=== PATIENT | female | born 1950 | race Caucasian/White ===

== ENCOUNTER 2017-05-21 15:42 | Outpatient (CLI) | payer MEDICARE, OTHER ==
--- NOTE | 2017-05-22 09:29 | XRAY Report ---
TWO VIEW CHEST: 05/21/2017 CLINICAL INDICATION: Cough. FINDINGS: Frontal and lateral views of the chest demonstrate a normal cardiac silhouette. The lungs are clear. No effusion or pneumothorax is present. IMPRESSION: NORMAL CHEST. TD: 05/22/2017 09:28
== END 2017-05-21 15:43 | disposition home or self-care (01) ==
LOC: DI 15:42
PROVIDERS: ATTEND Internal Medicine
DX: R05 Cough (principal)
CPT/HCPCS: 71046

== ENCOUNTER 2017-12-31 15:14 | Outpatient (CLI) | payer MEDICARE, OTHER ==
--- NOTE | 2017-12-31 16:03 | XRAY Report ---
Reason: L ELBOW PAIN Procedure Date: 12/31/2017 Accession Number: [id number] / [id number] Procedure: XR - Elbow 3 View LT CPT Code: FULL RESULT: EXAM: LEFT ELBOW RADIOGRAPHY EXAM DATE: 12/31/2017 03:46 PM. CLINICAL HISTORY: Left elbow pain. COMPARISON: None. TECHNIQUE: 3 views. FINDINGS: Bones: Normal. No fractures or bone lesions. Joints: Normal. No effusion. No subluxation. Soft Tissues: Normal. No soft tissue swelling. IMPRESSION: Normal elbow radiography. RADIA
== END 2017-12-31 15:15 | disposition home or self-care (01) ==
LOC: DI 15:14
PROVIDERS: ATTEND Internal Medicine
DX: M25.522 Pain in left elbow (principal)

== ENCOUNTER 2018-03-12 08:05 | Outpatient (CLI) | payer MEDICARE, OTHER ==
[2018-03-12] MEDS ORDERED: IOVERSOL 320 50 ML VIAL ONE (08:12)
[2018-03-12] MEDS ORDERED: IOVERSOL 320 100 ML VIAL IVP ONE ×2 (08:12→13:24)
[2018-03-12 09:34] LABS: CREATININE 0.9 mg/dL (0.4-1.0)
[2018-03-12] MEDS ORDERED: IOVERSOL 320 50 ML VIAL PO ONE (13:24)
--- NOTE | 2018-03-13 07:11 | CT Report ---
Reason: PELVIC MASS Procedure Date: 03/12/2018 Accession Number: [id number] / [id number] Procedure: CT - Pelvis W/ CPT Code: FULL RESULT: EXAM: CT PELVIS EXAM DATE: 03/12/2018 09:35 AM. CLINICAL HISTORY: Pelvic mass. COMPARISONS: MR HIP LT WO CON 03/07/2018 2:27 PM. TECHNIQUE: Routine helical CT imaging was performed through the pelvis. IV contrast: 90 mL Isovue 320. Enteric contrast: Yes. Reconstructions: Coronal and sagittal. In accordance with CT protocol optimization, one or more of the following dose reduction techniques were utilized for this exam: automated exposure control, adjustment of mA and/or KV based on patient size, or use of iterative reconstructive technique. FINDINGS: Visualized Abdominal Organs: The visualized portion of the right kidney is unremarkable. Peritoneal Cavity/Bowel: No free air or definite process is identified. Pelvic Organs: There is a enhancing cystic and solid mass complex in the location of the expected uterus and adnexa which are no longer separately identifiable which measures at least 8 cm x 7.3 cm and is surrounded by possibly loculated pelvic fluid. Visualized bowel loops and bladder appear within normal limits. No lymphadenopathy is identified. Vasculature: No aneurysms or other significant abnormality. Bones: No significant abnormality. Other: None. IMPRESSION: Suspicious enhancing cystic and solid mass in the expected location of the uterus and adnexa. This finding likely requires referral to gynecology for consideration of exploratory laparotomy. [place] imaging preparation is transabdominal and transvaginal ultrasound in an attempt to identify uterine versus adnexal etiology, nature of the pelvic fluid and absence or presence of hydrosalpinx. RADIA
== END 2018-03-12 08:06 | disposition home or self-care (01) ==
LOC: LAB 08:05
PROVIDERS: ATTEND Internal Medicine
DX: R19.09 Other intra-abdominal and pelvic swelling, mass and lump (principal)
CPT/HCPCS: 36415; 72193; 80048; 86304; Q9967

== ENCOUNTER 2021-05-16 23:36 | Emergency (ER) | payer MEDICARE, OTHER ==
[2021-05-17] MEDS ORDERED: HYDROmorphone 1 MG/ML CARPUJECT IVP STA ×3 (00:05→02:58)
[2021-05-17] MEDS ORDERED: ONDANSETRON 4 MG/2 ML VIAL IVP STA (00:05)
[2021-05-17] MEDS ORDERED: SODIUM CHLORIDE 0.9% 250 ML IV STA (00:05)
--- NOTE | 2021-05-17 00:09 | ED Physician Documentation ---
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 pain is currently 6/10, improved after taking pain meds at home, though she did throw up immediately after taking meds. soft brown stool today. no fevers, urinary sx, back pain, soa, cough, cp. tested positive for covid today. Of note, patient is on eliquis for provoked dvt. Review of Systems Ten Systems: 10 systems reviewed and negative Constitutional: denies: Fever, Chills GI: reports: Abdominal Pain, Nausea, Vomiting. denies: Constipation, Diarrhea, Bloody / black stool : denies: Dysuria, Frequency, Hematuria Musculoskeletal: denies: Back pain Neurologic: reports: Generalized weakness PD PAST MEDICAL HISTORY - Present Medications Home Medications: Ambulatory Orders Medication Instructions Recorded Confirmed Apixaban [Eliquis] 05/17/21 Gabapentin [Neurontin] 05/17/21 Metoclopramide [Reglan] 05/17/21 Morphine ER [Morphine Sulfate ER] 45 mg 05/17/21 Sennosides/Docusate Sodium 1 each PO QDAC PRN #30 tablet 05/17/21 [Senna-Docusate Sodium Tablet] Spironolactone [Aldactone] 05/17/21 amLODIPine [Norvasc] 05/17/21 oxyCODONE [Roxicodone] 5 mg PRN 05/17/21 - Allergies Allergies/Adverse Reactions: Allergies Allergy/AdvReac Type Severity Reaction Status Date / Time No Known Drug Allergies Allergy Verified 05/17/21 00:03 PD ED PE NORMAL - Vitals Vital signs reviewed: Yes - General General: Alert and oriented X 3, No acute distress, Other (uncomfortable appearing) - HEENT HEENT: Atraumatic, PERRL, EOMI - Neck Neck: Supple, no meningeal sign - Cardiac Cardiac: RRR - Respiratory Respiratory: No respiratory distress, Clear bilaterally - Abdomen Abdomen: Other (diffusely ttp, worst in LLQ with moderate distension) - Back Back: No CVA TTP - Derm Derm: Normal color, Warm and dry - Extremities Extremities: No deformity - Neuro Neuro: Alert and oriented X 3, No motor deficit, No sensory deficit, Normal speech - Psych Psych: Normal mood, Normal affect Results - Vitals Vitals: Vital Signs - 24 hr 05/16/21 05/17/21 23:59 01:41 Temperature 36.8 C Heart Rate 72 72 Respiratory 22 21 Rate Blood Pressure 144/87 H 136/77 H O2 Saturation 98 94 Oxygen O2 Source Room air - Labs Labs: Laboratory Tests 05/17/21 05/17/21 05/17/21 00:12 00:12 00:12 WBC 5.0 RBC 2.88 L Hgb 9.4 L Hct 28.7 L MCV 99.7 H MCH 32.6 H MCHC 32.8 RDW 15.3 H Plt Count 310 MPV 9.9 Neut # (Auto) 4.0 Lymph # (Auto) 0.4 L Hancock # (Auto) 0.6 Eos # (Auto) 0.1 Baso # (Auto) 0.0 Absolute Nucleated RBC 0.00 Nucleated RBC % 0.0 PT 15.8 H INR 1.4 H APTT 34.9 H Sodium 136 Potassium 4.1 Chloride 97 L Carbon Dioxide 27 Anion Gap 12.0 BUN 21 H Creatinine 1.1 H Estimated GFR (MDRD) 49 L Glucose 124 H Calcium 9.6 Total Bilirubin 0.7 AST 36 ALT 30 Alkaline Phosphatase 439 H Total Protein 6.7 Albumin 3.4 Globulin 3.3 Albumin/Globulin Ratio 1.0 Lipase 20 L Nasal Adenovirus (PCR) Nasal B. parapertussis DNA (PCR) Nasal Coronavir 229E PCR Nasal Coronavir HKU1 PCR Nasal Coronavir NL63 PCR Nasal Coronavir OC43 PCR Nasal Enterovir/Rhinovir PCR Nasal Influenza B PCR Nasal Influenza A PCR Nasal Parainfluen 1 PCR Nasal Parainfluen 2 PCR Nasal Parainfluen 3 PCR Nasal Parainfluen 4 PCR Nasal RSV (PCR) Nasal B.pertussis DNA PCR Nasal C.pneumoniae (PCR) Chris Human Metapneumo PCR Nasal M.pneumoniae (PCR) Nasal SARS-CoV-2 (PCR) 05/17/21 00:12 WBC RBC Hgb Hct MCV MCH MCHC RDW Plt Count MPV Neut # (Auto) Lymph # (Auto) Hancock # (Auto) Eos # (Auto) Baso # (Auto) Absolute Nucleated RBC Nucleated RBC % PT INR APTT Sodium Potassium Chloride Carbon Dioxide Anion Gap BUN Creatinine Estimated GFR (MDRD) Glucose Calcium Total Bilirubin AST ALT Alkaline Phosphatase Total Protein Albumin Globulin Albumin/Globulin Ratio Lipase Nasal Adenovirus (PCR) NOT DETECTED Nasal B. parapertussis DNA (PCR) NOT DETECTED Nasal Coronavir 229E PCR NOT DETECTED Nasal Coronavir HKU1 PCR NOT DETECTED Nasal Coronavir NL63 PCR NOT DETECTED Nasal Coronavir OC43 PCR NOT DETECTED Nasal Enterovir/Rhinovir PCR NOT DETECTED Nasal Influenza B PCR NOT DETECTED Nasal Influenza A PCR NOT DETECTED Nasal Parainfluen 1 PCR NOT DETECTED Nasal Parainfluen 2 PCR NOT DETECTED Nasal Parainfluen 3 PCR NOT DETECTED Nasal Parainfluen 4 PCR NOT DETECTED Nasal RSV (PCR) NOT DETECTED Nasal B.pertussis DNA PCR NOT DETECTED Nasal C.pneumoniae (PCR) NOT DETECTED Chris Human Metapneumo PCR NOT DETECTED Nasal M.pneumoniae (PCR) NOT DETECTED Nasal SARS-CoV-2 (PCR) DETECTED A PD MEDICAL DECISION MAKING - ED course ED course: 71yF p/w n/v, abd pain. +covid exposure in . will obtain labs, ct, treat symptomatically, reevaluate. Patient with pain and nausea well controlled in the emergency department. covid positive. CT showing constipation, distended colon, rectosigmoid mass likely causing partial large bowel obstruction. Patient did have a normal soft brown stool in the last 24 hours. d/w Dr. King, patient's oncologist who recommends discharge with clear liquid diet and plan to call for follow up with his clinic in the morning for next steps. strict return precautions discussed with the patient. Departure - Departure Disposition: 01 Home, Self Care Clinical Impression: Anemia, Abdominal pain, Constipation, Colonic mass Condition: Stable Instructions: Diet Clear Liquid Dc, Abdominal Pain, Constipation Prescriptions: Sennosides/Docusate Sodium [Senna-Docusate Sodium Tablet] 1 each PO QDAC PRN #30 tablet PRN Reason: Constipation Comments: You were seen in the emergency department for abdominal pain and nausea/vomiting and found to have covid and a mass on your colon causing constipation and distension of the colon. I spoke with Dr. King in regards to this and he would like you to start a clear liquid diet and call his clinic in the morning for follow up care. I am prescribing senna/docusate, a stool softener which you should start taking in addition to the miralax. Please return to the ED if you have new or worsening symptoms or other concerns.
[2021-05-17 00:42] LABS: BASOPHILS % (AUTO) 0.2 %; EOSINOPHILS # (AUTO) 0.1 10^3/uL (0.0-0.7); EOSINOPHILS % (AUTO) 1.2 %; HCT - HEMATOCRIT 28.7 % (37.0-47.0); HGB - HEMOGLOBIN 9.4 g/dL (12.0-16.0); LYMPHOCYTES # (AUTO) 0.4 10^3/uL (1.5-3.5); MEAN CORPUSCULAR HEMOGLOBIN 32.6 pg (27.0-31.0); MEAN CORPUSCULAR HGB CONC 32.8 g/dL (32.0-36.0); MEAN CORPUSCULAR VOLUME 99.7 fL (81.0-99.0); MEAN PLATELET VOLUME 9.9 fL (7.9-10.8); MONOCYTES # (AUTO) 0.6 10^3/uL (0.0-1.0); MONOCYTES % (AUTO) 11.8 %; NEUTROPHILS % (AUTO) 79.4 %; PLT - PLATELET COUNT 310 10^3/uL (130-450); RED BLOOD COUNT 2.88 10^6/uL (4.20-5.40); RED CELL DISTRIBUTION WIDTH 15.3 % (12.0-15.0)
[2021-05-17 00:49] LABS: INR 1.4 (0.8-1.2); PT - PROTHROMBIN TIME 15.8 secs (9.9-12.6)
[2021-05-17 00:51] LABS: ALBUMIN 3.4 g/dL (3.2-5.5); BILIRUBIN,TOTAL 0.7 mg/dL (0.2-1.0); CALCIUM 9.6 mg/dL (8.5-10.3); CREATININE 1.1 mg/dL (0.4-1.0); POTASSIUM 4.1 mmol/L (3.5-5.0); TOTAL PROTEIN 6.7 g/dL (6.7-8.2)
[2021-05-17] MEDS ORDERED: IOVERSOL 320 100 ML VIAL IVP ONE ×2 (00:52→01:43)
[2021-05-17] MEDS ORDERED: PANTOPRAZOLE 40 MG VIAL IVP STA (00:52)
[2021-05-17] MEDS ORDERED: FAMOTIDINE 20 MG/2 ML VIAL IVP STA (00:52)
[2021-05-17 00:57] LABS: PARTIAL THROMBOPLASTIN TIME 34.9 secs (24.9-33.3)
[2021-05-17 01:43] LABS: CORONAVIRUS 229E-RESP PCR NOT DETECTED; CORONAVIRUS HKU1-RESP PCR NOT DETECTED; CORONAVIRUS NL63-RESP PCR NOT DETECTED
[2021-05-17 01:44] LABS: CORONAVIRUS OC43-RESP PCR NOT DETECTED
[2021-05-17 01:45] LABS: B. PARAPERTUSSIS- RESP PCR PAN NOT DETECTED; B. PERTUSSIS- RESP PCR PANEL NOT DETECTED; C. PNEUMONIAE- RESP PCR PANEL NOT DETECTED; HUMAN METAPNEUMOVIRUS NOT DETECTED; INFLUENZA A- RESP PCR PANEL NOT DETECTED; INFLUENZA B - RESP PCR PANEL NOT DETECTED; M. PNEUMONIAE- RESP PCR PANEL NOT DETECTED; PARAINFLUENZA VIRUS 1 NOT DETECTED; PARAINFLUENZA VIRUS 2 NOT DETECTED; PARAINFLUENZA VIRUS 3 NOT DETECTED; PARAINFLUENZA VIRUS 4 NOT DETECTED; RHINOVIRUS/ENTEROVIRUS NOT DETECTED; RSV- RESP PCR PANEL NOT DETECTED; SARS-CoV-2 -RESP PCR PANEL DETECTED
--- NOTE | 2021-05-17 02:01 | CT Report ---
PROCEDURE: Abdomen/Pelvis W INDICATIONS: LLQ pain CONTRAST: IV CONTRAST: Optiray 320 ml: 100 PO CONTRAST: *NO PO CONTRAST TECHNIQUE: After the administration of contrast, 5 mm thick sections acquired from the diaphragms to the sym physis. 5 mm thick coronal and sagittal reformats were acquired. For radiation dose reduction, the following was used: automated exposure control, adjustment of mA and/or kV according to patient size . COMPARISON: None. FINDINGS: Image quality: Excellent. ABDOMEN: Lung bases: Lung bases are clear. Heart size is normal. Solid organs: Liver: The liver has multiple hypodensities in both lobes of the liver measuring up to 6 cm in diamet er, consistent with metastatic disease. The portal vein and hepatic veins are patent. Biliary: The gallbladder has no gallstones, pericholecystic fluid, gallbladder wall thickening, or arriaga rrounding inflammatory change. Pancreas: The pancreas has no mass or ductal dilatation. No surrounding inflammation. Spleen: Normal size. No mass. Adrenal glands: No hypertrophy or nodules. Kidneys: A right ureteral stent appears well-positioned. There is no hydronephrosis in either kidney. No solid or cystic mass. Bowel: The stomach is distended with fluid. The small bowel has a normal caliber. The large bowel is severely distended with stool measuring up to 7 cm in diameter. The caliber of the sigmoid colon tapers in the mid pelvis and there is an ill-defined area suspicious for a mass. Free air/free fluid: No free air or free fluid. Abdominal wall: No abdominal wall mass or hernia. Retroperitoneum: Retroperitoneal lymph nodes are pathologically enlarged, a left para-aortic lymph no de measures up to 1.6 cm. Aorta and inferior vena cava are normal in size. Bones: No suspicious bony lesions. No vertebral body compression fractures. PELVIS: Genitourinary: [Bladder wall thickness is normal. ] Miscellaneous: [No inguinal hernias or adenopathy. ] Bones: [No suspicious bony lesions. No vertebral body compression fractures. ] IMPRESSION: 1. Multiple hepatic hypodensities most likely metastatic disease and retroperitoneal adenopathy. 2. Ill-defined density in the central pelvis centered around the rectosigmoid junction, suspicious fo r a mass. Recommend colonoscopy. 3. Distended large bowel consistent with severe constipation likely due to large bowel obstruction fr om the mass at the rectosigmoid junction. 4. Bibasilar atelectasis and moderate-sized right pleural effusion. Reviewed by: César Johnson on 05/17/2021 2:00 AM PST Approved by: César Johnson on 05/17/2021 2:00 AM PST Station ID: [id number]
[2021-05-17] MEDS ORDERED: SENNA SYRUP 8.8 MG/5 ML UDC PO STA (02:58)
[2021-05-17] MEDS ORDERED: DOCUSATE SODIUM 250 MG CAPSULE PO STA (02:58)
[2021-05-17] MEDS ORDERED: SENNA 8.6 MG TABLET PO STA (03:14)
[2021-05-17 03:20] VITALS: BP 130/76
== END 2021-05-17 03:36 | disposition home or self-care (01) ==
LOC: ED 23:36
DX: D64.9 Anemia, unspecified (principal); R10.84 Generalized abdominal pain; K59.00 Constipation, unspecified; K63.89 Other specified diseases of intestine; U07.1 COVID-19
CPT/HCPCS: 36415; 74177; 80053; 83690; 85025; 85610; 85730; 87631; 96374; 96375; 96376; 99283; 99284; A9270; J1170; Q9967; 0202U